=== PATIENT | female | born 1955 | race Caucasian/White ===

== ENCOUNTER → 2020-12-15 | Outpatient (CLI) | payer MEDICARE ==
--- NOTE | 2020-12-15 16:22 | REP ---
INDICATION: ADDITIONALVIEWS LT BREAST; ADDITIONAL VIEWS LT BREAST. COMPARISON: Comparison mammography September 22, 2020 showed a asymmetric nodular density in the upper outer quadrant. Comparison is also made with March 18, 2019 and December 22, 2017 prior left per mammogram images. TECHNIQUE: Magnified focal spot-compression CC, MLO, and non magnified true mL views of the left breast are obtained. 3D tomography is deployed in the mL projection. Targeted left breast ultrasound is performed. This mammogram was interpreted with the aid of an FDA-approved computer-aided detection system. FINDINGS: Breast parenchyma in the upper outer quadrant is heterogeneous and somewhat dense. A nodular density persists in the upper outer quadrant on magnified focal spot images. This has well-circumscribed margins and a 5.6 mm diameter. No other suspicious mammographic finding. . Targeted ultrasound: Targeted left breast sonography is performed from 1:00 to 3:00. At the 3 o'clock position in the left breast there is a cyst measuring 7 x 3 x 7 mm located 5.4 cm from the nipple. This is felt to account for the mammographic opacity. IMPRESSION: BIRADS/ACR category 2 benign left breast mammographic and sonographic findings. Small cyst seen accounting for the mammographic opacity. This patient's Tyrer-Cuzick lifetime breast cancer risk assessment score is 5.2%. RECOMMENDATION: Repeat screening mammography recommended 1 year (for women over 40). The patient letter being requested is M1. <Electronically signed by Yuri Torres > 12/15/20 [id number]
== END ==
LOC: M WHC 13:00
PROVIDERS: ATTEND Obstetrics & Gynecology
DX: R92.8 Other abnormal and inconclusive findings on diagnostic imaging of breast (principal); N60.19 Diffuse cystic mastopathy of unspecified breast